=== PATIENT | female | born 1960 | race African-American/Black ===

== ENCOUNTER 2017-12-02 07:18 | Day surgery (SDC) | payer OTHER ==
[2017-11-25 10:36] VITALS: BMI 29.9
[2017-12-02] MEDS ORDERED: ROPIVACAINE HCL 0.5% 30ML VIAL ONE (09:44)
[2017-12-02] MEDS ORDERED: MIDAZOLAM HCL 2 MG/2 ML SINGLE DOSE VIAL ONE (09:44)
[2017-12-02] MEDS ORDERED: BUPIVACAINE HCL/EPINEPHRINE/PF 30 ML VIAL IJ ONE (10:02)
[2017-12-02] MEDS ORDERED: EPINEPHrine 1:1,000 1 MG/1 ML - 30ML VIAL (INJECTION) ONE (10:03)
[2017-12-02] MEDS ORDERED: PROPOFOL 20 ML ONE ×2 (11:00→11:21)
[2017-12-02] MEDS ORDERED: ceFAZolin SODIUM 1 GM VIAL ONE (11:08)
[2017-12-02] MEDS ORDERED: oxyCODONE HCL 5 MG TABLET PO PRN ×2 (11:53→12:13)
[2017-12-02] MEDS ORDERED: oxyCODONE HCL 10 MG SUSTAINED ACTING TABLET PO ONE (11:53)
--- NOTE | 2017-12-02 11:58 | DS ---
Physical Examination Vital Signs: Vital Signs Temperature 98.8 F 12/02/17 07:36 Pulse Rate 98 H 12/02/17 07:36 Respiratory Rate 18 12/02/17 07:36 Blood Pressure 138/81 12/02/17 07:36 O2 Sat by Pulse Oximetry (%) 96 12/02/17 07:36 Discharge Summary Reason For Visit: ROTATOR CUFF TEAR RIGHT SHOULDER Condition: Good - Instructions Diet, Activity, Other Instructions: Post Operative Instructions: Shoulder Arthroscopy Dr Basil Zacarias 1. Pain following a Shoulder Arthroscopy is variable and can be significant. Some patients will have more pain than others. You have been provided with a prescription for medication that contains a narcotic. You are not allowed to drive while on this medication. You should NOT take Tylenol (Acetaminophen) when taking the pain medication ( it will result in an overdose). Feel free to take medications such as Ibuprofen or Naprosyn in addition to the pain medicine if you do not have any problems with the NSAID class of medications. 2. Apply ice to the shoulder for 15 minutes every hour. You may continue this for as many days as necessary. 3. You may find sleeping on an incline (reclining chair) to be more comfortable for the first few days. 4. You must remain in your sling at all times except when showering. The only exception to this is to allow you to stretch your elbow a few times a day to prevent your hand and forearm from swelling. 5. You are not to use your arm to reach for anything, lift anything or carry anything until instructed otherwise. 6. You may remove the bandages in 48 hours. You may shower at that point. If the band-aids become wet you can change them. Do not pick at the glue underneath the band aids. 7. Place band-aids on the glue after your shower.Do not put any creams or lotions on the incision until after the sutures are removed. 8. Please call the office to schedule a visit to have your sutures removed. 9. If for any reason you believe you may have an infection or are concerned, please feel free to call me. I can be reached through our office number 24 hours a day. 10. Please call our office with any questions; we will review the surgical findings during your post-operative visit. Disposition: HOME - Home Medications Comprehensive Discharge Medication List: Ambulatory Orders Amlodipine Besylate [Norvasc] 10 mg PO DAILY 03/15/12 Ibuprofen 800 mg PO BID 11/25/17 Ranitidine [Zantac -] 150 mg PO DAILY 11/25/17 Doxycycline Hyclate 100 mg PO BID 12/02/17 Enalapril Maleate [Vasotec] 10 mg PO DAILY 12/02/17
--- NOTE | 2017-12-02 11:58 | OP ---
Operative Note - Note: Operative Date: 12/02/17 Pre-Operative Diagnosis: Right shoulder rotator cuff tear Operation: right shoulder arthroscopy, decompression, rotator cuff repair Post-Operative Diagnosis: Same as Pre-op Surgeon: Basil Zacarias Anesthesiologist/SPLUNK DEVELOPER: Kory Gerardo Anesthesia: General Operative Report Dictated: Yes
[2017-12-02] MEDS ORDERED: oxyCODONE HCL 10 MG SUSTAINED ACTING TABLET ONE (12:10)
[2017-12-02] MEDS ORDERED: ACETAMINOPHEN 500 MG TABLET (FP) ONE (12:11)
[2017-12-02] MEDS ORDERED: ONDANSETRON 4 MG/2 ML VIAL IVPUSH PRN (12:13)
[2017-12-02] MEDS ORDERED: LACTATED RINGERS SOLUTION 1,000 ML IV SCH (12:15)
[2017-12-02 14:30] VITALS: TEMP 97.9
[2017-12-02 14:35] VITALS: BP 127/78; PULSE 86
--- NOTE | 2017-12-07 14:55 | PATH ---
Surgical Pathology Report Patient Name: PRINCESS DIXON Med. Rec. #: [id number] /Age/Gender: 1960 (Age: 56) / F Account: [id number] Location: [facility] Taken: 12/02/2017 Received: 12/02/2017 Reported: 12/07/2017 Physicians: Basil Zacarias M.D. Specimen(s) Received SHAVINGS RIGHT SHOULDER Clinical History Rotator cuff tear Final Diagnosis SHOULDER, RIGHT, ARTHROSCOPIC SHAVINGS: FIBROSYNOVIAL TISSUE AND SCANT SKELETAL MUSCLE. Electronically Signed Irma Echavarria M.D. Gross Description Received in formalin, labeled "shavings right shoulder," is a 2.5 x 2.3 x 0.3 cm. aggregate of gaston-yellow soft tissue fragments. A registered representative portion is submitted in one cassette. /12/05/2017 saudi/12/05/2017
== END 2017-12-02 14:20 | disposition home or self-care (01) ==
LOC: FASU 07:18
PROVIDERS: ATTEND Orthopaedic Surgery
PROC: 0RNJ4ZZ Release Right Shoulder Joint, Percutaneous Endoscopic Approach (ICD-10-PCS; 2017-12-02)
PROC: 0LQ14ZZ Repair Right Shoulder Tendon, Percutaneous Endoscopic Approach (ICD-10-PCS; principal; 2017-12-02 11:15)
DX: M75.101 Unspecified rotator cuff tear or rupture of right shoulder, not specified as traumatic (principal)
CPT/HCPCS: 88304-TC

== ENCOUNTER 2019-03-21 08:20 | Emergency (ER) | payer OTHER ==
[2019-03-21 08:31] VITALS: BP 174/91; PULSE 78; TEMP 98.5; BMI 28.7
--- NOTE | 2019-03-21 09:01 | PDOC ---
History of Present Illness - General Chief Complaint: Edema Stated Complaint: SWOLLEN LT BREAST Time Seen by Provider: 03/21/19 08:34 History Source: Patient Exam Limitations: No Limitations - History of Present Illness Initial Comments: 03/21/19 08:56 Patient is a 58-year-old female who presents to the ED with complaint of left breast swelling for the last 3 to 4 days. She states that she feels as if her left breast is larger than her right. She denies any pain. She denies any fevers. She did have a mammogram December 2018 and was told she needed to follow-up with an ultrasound. She was given that information about 2 weeks ago. Since then she has been very concerned about her left breast. She states she has an appointment for an ultrasound of her left breast on April 10, 2019. The patient states she wanted to come for evaluation because she was afraid something was going on with her left breast. Past History - Past Medical History Allergies/Adverse Reactions: Allergies Allergy/AdvReac Type Severity Reaction Status Date / Time lisinopril Allergy Intermediate Verified 03/21/19 08:25 Home Medications: Ambulatory Orders Amlodipine Besylate [Norvasc] 10 mg PO DAILY 03/15/12 Ibuprofen 800 mg PO BID 11/25/17 Ranitidine [Zantac -] 150 mg PO DAILY 11/25/17 Doxycycline Hyclate 100 mg PO BID 12/02/17 Enalapril Maleate [Vasotec] 10 mg PO DAILY 12/02/17 Anemia: No Asthma: No Cancer: No Cardiac Disorders: No CVA: No COPD: No CHF: No Dementia: No Diabetes: No (DIET CONTROLLED, BOARDERLINE) GI Disorders: Yes (H.PYLORI, ACID REFLUX) Disorders: No HTN: Yes Hypercholesterolemia: No Liver Disease: No Seizures: No Thyroid Disease: Yes (HYPOTHYROID) - Surgical History Abdominal Surgery: No Appendectomy: No Cardiac Surgery: No Cholecystectomy: No Lung Surgery: No Neurologic Surgery: No Orthopedic Surgery: Yes (RIGHT KNEE ARTHROSCOPY) - Reproductive History (#): 11 Para: 7 Therapeutic (s) & number: Yes Spontaneous : 4 - Immunization History Immunization Up to Date: (FLU) - Psycho Social/Smoking Cessation Hx Smoking Status: No Smoking History: Never smoked Have you smoked in the past 12 months: No Number of Cigarettes Smoked Daily: 0 If you are a former smoker, when did you quit?: 2009 Hx Alcohol Use: No Drug/Substance Use Hx: No Substance Use Type: Alcohol Hx Substance Use Treatment: No Review of Systems - Review of Systems Comments:: 03/21/19 08:57 - Review of Systems Able to Perform ROS?: Yes Constitutional: No: Fever, Chills, Loss of Appetite, Night Sweats, Weakness Respiratory: No: Cough, Shortness of Breath, Wheezing, Sputum Production Cardiac (ROS): No: Chest Pain, Chest Tightness, Palpitations, Irregular Heart Beat, Edema ABD/GI: No: Nausea, Vomiting, Abdominal Pain, Diarrhea Breast: Left breast swelling : No Dysuria, No Hematuria, No Frequency, No Urgency, No Vaginal Discharge/ Pain Musculoskeletal: No: Muscle Pain, Back Pain, Joint Pain, Muscle Weakness, Neck Pain Integumentary: No: Lesions, Rash Neurological: No: Headache, Numbness, Tingling, Weakness, Speech Difficulties *Physical Exam - Vital Signs Last Vital Signs Temp Pulse Resp BP Pulse Ox 98.5 F 78 18 174/91 H 99 03/21/19 08:27 03/21/19 08:27 03/21/19 08:27 03/21/19 08:27 03/21/19 08:27 - Physical Exam 03/21/19 08:58 - Physical Exam General Appearance: Nourished, Appropriately Dressed, No Distress HEENT: EOMI, Normal Voice, No Muffled/Hoarse voice, No Nasal Congestion, No Rhinorrhea, Hearing Grossly Normal Neck: Supple, No Lymphadenopathy (R), No Lymphadenopathy (L), No Rigidity, No Decreased range of motion Respiratory/Chest: Lungs Clear, Normal Breath Sounds. No Respiratory Distress, No Accessory Muscle Use Cardiovascular: Regular Rhythm, Regular Rate, S1, S2 Gastrointestinal/Abdominal: Normal Bowel Sounds, Soft. Non-tender, No Guarding , No Rebound, No Rigidity Breast: There is no obvious discrepancy in size of the left breast compared to the right. There is no left breast edema appreciated. No skin changes. No discrete masses appreciated to the left or right breast. No nipple discharge to the bilateral breasts. No tenderness to palpation to the bilateral breast. Musculoskeletal: Normal Inspection. No Decreased Range of Motion Extremity: Normal Capillary Refill, Normal Inspection Integumentary: Normal Color, Dry. No Rash Neurologic: flag signalman II-XII NML intact, Fully Oriented, Alert, Normal Mood/Affect, Normal Response Medical Decision Making - Medical Decision Making 03/21/19 08:59 Assessment: Patient is a 58-year-old female with concern of left breast edema for the last 3 to 4 days. Plan: I have made the patient aware that there is no discrete left breast edema or masses appreciated. I have also made her aware that all women have one breast that is slightly larger than the other and this may be a normal variant. She does have a follow-up ultrasound appointment on April 10 for further evaluation after having an abnormal mammogram. I have made the patient aware that an ultrasound can be performed while in the ED but this would be for evaluation of acute process such as infection. The patient has declined having an ultrasound in the ED and states she will follow-up with her doctor. She understands and agrees with this treatment plan and the patient is stable for discharge. Discharge - Discharge Information Problems reviewed: Yes Clinical Impression/Diagnosis: Normal breast exam Condition: Stable Disposition: HOME - Follow up/Referral - Patient Discharge Instructions Patient Printed Discharge Instructions: Breast Self-exam (BSE) Additional Instructions: Be sure to follow-up with your provider and to have your left breast ultrasound on April 10. If you begin to have breast pain, discharge from your nipple, change in skin, infection or bleeding you can return to the ED for further evaluation. - Post Discharge Activity Work/Back to School Note: Back to Work
== END 2019-03-21 09:09 | disposition home or self-care (01) ==
LOC: JERFT 08:20
DX: Z71.1 Person with feared health complaint in whom no diagnosis is made (principal); Z88.8 Allergy status to other drugs, medicaments and biological substances; I10 Essential (primary) hypertension; E07.9 Disorder of thyroid, unspecified; R73.03 Prediabetes
CPT/HCPCS: 99281-25